=== PATIENT | male | born 1990 | race African-American/Black ===

== ENCOUNTER → 2024-10-09 | Outpatient (CLI) | payer MEDICARE ==
--- NOTE | 2024-10-09 13:15 | NUR ---
MBSS COMPLETED (OUTPATIENT). Deep transient penetration during the swallow with thin liquids via cup and straw sips. RECOMMEND: easy to chew solids, mildly thick liquids and pills whole 1 per swallow or crushed as tolerated. Compensatory strategies: 1. sit upright during oral intake 2. small bites/sips 3. slow oral intake DIAGNOSTIC FINDINGS: Pt presented with mild pharyngeal dysphagia characterized by decreased tongue base retraction; decreased hyo-laryngeal elevation/excursion evidenced by residue on base of tongue, valleculae, posterior pharyngeal wall and pyriform sinuses; resulting in deep transient penetrations during the swallow with thin liquids via cup and straw sips; deep transient penetrations eliminated with nectar thick liquids. No aspirations observed. Pt observed very impulsive with liquids; recommend mildly thick liquids to compensate. DIRECTOR OF STUDENT SERVICES reviewed results and recommendations with patient and provider as patient is nonverbal. DIRECTOR OF STUDENT SERVICES educated patient/provider on risks and consequences of aspirations. Pt provided with can of thickener and demonstrated how to reach mildly thick liquids. Speech therapy not warranted at this time. Mild dysphagia best managed with modified diet and compensatory strategies. Addendum: 10/09/[address] [facility] Amended: Links added.
--- NOTE | 2024-10-10 06:08 | HMCIMG ---
EXAM: XR Barium Swallow Study CLINICAL HISTORY: Other feeding difficulties. Dysphagia. COMPARISON: None provided. FINDINGS: The barium swallow study demonstrated normal swallowing movements in the oral, pharyngeal, and upper esophageal phases. Unremarkable nasopharynx. The epiglottis is identified and is unremarkable. The airway is clear. No acute osseous abnormality. IMPRESSION: The barium swallow study demonstrated normal swallowing movements in the oral, pharyngeal, and upper esophageal phases. /[place]
== END | disposition home or self-care (01) ==
LOC: RAH 12:53
PROVIDERS: ATTEND Internal Medicine Gastroenterology
DX: R13.11 Dysphagia, oral phase (principal); R63.39 Other feeding difficulties
CPT/HCPCS: 74230; 92611

== ENCOUNTER 2024-11-13 07:44 | Day surgery (SDC) | payer MEDICARE ==
[~2024-11-13 07:44] MED LIST: 0.9%NACL 1000ML 1,000 ML IV ONE
[2024-11-13] MEDS ORDERED: OLAN5TAB76 PO (09:06)
[2024-11-13] MEDS ORDERED: TRAZ150T79 PO (09:06)
[2024-11-13] MEDS ORDERED: LAMO100T66 PO (09:06)
[2024-11-13] MEDS ORDERED: FAMO20TA8 PO (09:06)
[2024-11-13] MEDS ORDERED: LACT-441 PO (09:06)
[2024-11-13] MEDS ORDERED: DOCU100C33 PO (09:06)
[2024-11-13] MEDS ORDERED: BENZ2TAB71 PO (09:06)
[2024-11-13] MEDS ORDERED: LEVO75CA6 PO (09:06)
[2024-11-13] MEDS ORDERED: HYDR-3421 PO (09:06)
[2024-11-13] MEDS ORDERED: OLANZAPINE PO (09:06)
--- NOTE | 2024-11-13 10:00 | NUR ---
PATIENT VERY AGITATED, ATIVAN GIVEN PER DR KAREEM LAMAR. PATIENT RELAX SOME PEG REMOVED, VERY SMALL AMT OF BLOOD NOTICE AND 4X4 DRESSING APPLIED. PATIENT DISMISS PER WHEEL CHAIR, ACCOMPANIED BY HOME PERSONAL. Addendum: 11/14/24 at 1057 by TOMASZ TENA RN INSTRUCTIONS GIVEN TO HOME PERSONAL.
--- NOTE | 2024-11-13 11:05 | OP ---
Operative Note: DATE OF PROCEDURE: 11/13/24 SURGEON: RYDER SERNA MD MAJOR ASSEMBLER: Mariela Cochran ANESTHESIA: None ANESTHESIOLOGIST/ACTUARIAL SCIENCE TEACHER: None PREOPERATIVE DIAGNOSIS: Gastrostomy malfunction POSTOPERATIVE DIAGNOSIS: Removal of gastrostomy tube SYNOPSIS: Patient wants gastrostomy removed, he is able to eat PO PROCEDURE: With the patient relaxed in bed, we were able to gently use pressure on the existing Peg tube, and was able to remove it safely. The PEG site was cleaned and a dry dressing applied. ESTIMATED BLOOD LOSS: None INDICATIONS: [] Gastrostomy malfunction. DESCRIPTION OF PROCEDURE: With the patient relaxed in bed, we were able to gently use pressure on the existing Peg tube, and was able to remove it safely. The PEG site was cleaned and a dry dressing applied. PLAN. Follow up in GI clinic Daily dressing to PEG site till closure happens. Report to Gi clinic for any unusual odor, leakage, bleeding . RYDER SERNA MD Nov 13, 2024 11:05
== END 2024-11-13 11:00 | disposition home or self-care (01) ==
LOC: DAH 07:44 → ENDO 07:44
PROVIDERS: ATTEND Internal Medicine Gastroenterology
DX: K94.23 Gastrostomy malfunction (principal); I10 Essential (primary) hypertension; F41.9 Anxiety disorder, unspecified; G40.909 Epilepsy, unspecified, not intractable, without status epilepticus; F20.9 Schizophrenia, unspecified; F31.9 Bipolar disorder, unspecified; R63.39 Other feeding difficulties; K26.3 Acute duodenal ulcer without hemorrhage or perforation; B96.81 Helicobacter pylori [H. pylori] as the cause of diseases classified elsewhere; F20.81 Schizophreniform disorder; Z79.899 Other long term (current) drug therapy
CPT/HCPCS: 43762; J7030